=== PATIENT | female | born 1985 | race African-American/Black ===

== ENCOUNTER 2016-10-24 16:58 | Emergency (ER) | payer OTHER ==
[~2016-10-24] VITALS: Ht 170.2 cm; Wt 79.4 kg
--- NOTE | 2016-10-24 18:06 | PHYS DOC ---
Past Medical History Past Medical History: No Pertinent History Past Surgical History: Other Additional Past Surgical Histo: Tumor removed from R breast Alcohol Use: Rarely Drug Use: None Adult General Chief Complaint Chief Complaint: HYPERTENSION HPI HPI Patient is a 31 year old female comes to the ED because she was sent here from work because her blood pressure is high. Patient works in a group home. Today , she hasn't been feeling well. She woke up feeling drained. During the day she' s had some hot flashes. She's had a headache off and on and has felt some fluttering in her chest. She feels "jumpy on the inside". She doesn't really recall feeling like this in the past. She is usually in good health. Because she works at a group home she checks her own blood pressure 2 or 3 times a week and says it usually runs about 130/70. Today when she wasn't feeling well she checked it and it was 180/111. She also said a coworker is concerned that she might have "anxiety" because "she is always twitching her leg" however the patient says she's done this all of her life and she doesn't feel anxious and has no history of anxiety. Patient is in good general health. She doesn't take any medications. She has 4 children. Her blood pressure was running a little bit high before she delivered her last child in January 2016 but then it came down and it was fine. Her WOMEN'S HEALTH CARE NURSE PRACTITIONER is Dr. Bello, she hasn't seen him since her checkup which was fine. She does not have a primary care doctor. She smokes very occasionally. She doesn't do any kind of drugs or drink alcohol. Review of Systems Review of Systems Constitutional: Denies fever or chills [] Eyes: Denies change in visual acuity, redness, or eye pain [] HENT: Denies nasal congestion or sore throat [] Respiratory: Denies cough or shortness of breath [] Cardiovascular: As in history of present illness GI: Denies abdominal pain, nausea, vomiting, bloody stools or diarrhea [] : Denies dysuria or hematuria [] Musculoskeletal: Denies back pain or joint pain [] Integument: Denies rash or skin lesions [] Neurologic: She has had a headache today in association with not feeling well. Allergies Allergies Allergies Coded Allergies Type Severity Reaction Last Updated Verified No Known Drug Allergies 07/24/15 No Physical Exam Physical Exam Constitutional: Well developed, well nourished, no acute distress, non-toxic appearance. Alert, mentating normally. Blood pressure 168/105 HENT: Normocephalic, atraumatic, bilateral external ears normal, nose normal. [ ] Eyes: conjunctiva normal, no discharge. [] Neck: Normal range of motion, no stridor. [] Cardiovascular:Heart rate regular rhythm, grade 2/6 systolic murmur Lungs & Thorax: Bilateral breath sounds clear to auscultation [] Abdomen: Bowel sounds normal, soft, no tenderness, no masses, no pulsatile masses. [] Skin: Warm, dry, no erythema, no rash. [] Extremities: No tenderness, no cyanosis, no clubbing, ROM intact, no edema. [] Neurologic: Alert and oriented X 3, normal motor function, normal sensory function, no focal deficits noted. [] Current Patient Data Vital Signs Vital Signs Date Time Temp Pulse Resp B/P Pulse Ox O2 Delivery O2 Flow Rate FiO2 10/24/16 17:30 98.0 57 20 174/103 100 Room Air 98.0 EKG EKG 12-lead EKG read by me. Heart rate 60. Sinus rhythm. There are no acute ST or T wave changes indicative of ischemia or infarction. No STEMI. EKG is normal. 1717 [] Radiology/Procedures Radiology/Procedures [] Course & Med Decision Making Course & Med Decision Making Pertinent Labs and Imaging studies reviewed. (See chart for details) 31-year-old female who comes in today with an elevated blood pressure and also nonspecifically not feeling very well. Discussed with the patient we don't know whether she didn't feel well which caused her blood pressure to go up, or the other way around. Her blood pressure is not dangerously elevated today but if it remains in the range of 160-170 systolic she definitely does need to have evaluation and treatment. I discussed this with the patient who understands. Recommended that she monitor her blood pressure by taking it at least once a day for the next week or 2, meanwhile make an appointment with a primary care doctor for an office visit to discuss management of her blood pressure. The patient is stable and having no evidence of accelerated hypertension. [] Dragon Disclaimer Dragon Disclaimer This electronic medical record was generated, in whole or in part, using a voice recognition dictation system. Departure Departure Impression: Primary Impression: Elevated blood pressure Disposition: HOME, SELF-CARE Condition: STABLE Referrals: NO PCP (PCP) RAMON VICTORIA MD Patient Instructions: Hypertension, [id number] Additional Instructions: As we discussed, because you have had elevated blood pressure readings only today, I do not recommend starting any medication at this time, but check your blood pressure every day or 2 for the next 1-2 weeks and keep a record of it. Call tomorrow for a appointment with a primary care doctor and discuss your blood pressure with that doctor. Depending on what it does over the next week or 2 will depend on whether you need to have any prescriptions or other treatments. BETH BRYAN MD Oct 24, 2016 18:06
[2016-10-24 18:15] VITALS: BP 155/82
[2016-10-24 21:10] LABS: NEG OBC UR NEG; POS OBC UR POS
--- NOTE | 2016-10-25 06:57 | EKG ---
[facility] [address] [place] [address] Test Date: 2016-10-24 Test Time: 17:17:52 Pat Name: DESTIN RAMIREZ Department: Room: Gender: F Technology Professional: : 1985 Requested By: BETH BYRAN Order Number: [id number] Reading MD: Dave Potter Measurements Intervals [place] Rate: 60 P: 64 [place]: 168 QRS: 8 QRSD: 88 T: 15 QT: 400 QTc: 400 Interpretive Statements SINUS ARRHYTHMIA Electronically Signed On 10-25-2016 14:53:38 RADIOLOGY ADMINISTRATOR by Dave Potter
== END 2016-10-24 18:26 | disposition home or self-care (01) ==
LOC: ER 16:58
DX: I10 Essential (primary) hypertension (principal); F17.200 Nicotine dependence, unspecified, uncomplicated
CPT/HCPCS: 81025; 93005; 99285-25

== ENCOUNTER 2018-05-28 15:55 | Emergency (ER) | payer BC ==
[~2018-05-28] VITALS: Ht 170.2 cm; Wt 86.2 kg
[2018-05-28 16:00] VITALS: BP 130/80
--- NOTE | 2018-05-28 16:13 | PHYS DOC ---
Past Medical History Past Medical History: No Pertinent History Past Surgical History: Other Additional Past Surgical Histo: Tumor removed from R breast Alcohol Use: Rarely Drug Use: None Adult General Chief Complaint Chief Complaint: BACK PAIN OR INJURY HPI HPI Patient is a 32 year old female with no significant medical history who presents today complaining of 7 out of 10 throbbing intermittent right mid and low back pain that began this morning. Patient states she was walking down some steps carrying [id number]-old daughter when she slipped and fell. She states she fell down 2 steps and twisted wrong during the fall. Denies any loss of consciousness. Denies hitting her head on the ground, denies any neck pain. Denies pain radiating to bilateral lower extremities, denies any loss of bowel bladder function. Review of Systems Review of Systems Constitutional: Denies fever or chills [] Eyes: Denies change in visual acuity, redness, or eye pain [] HENT: Denies nasal congestion or sore throat [] Respiratory: Denies cough or shortness of breath [] Cardiovascular: No additional information not addressed in HPI [] GI: Denies abdominal pain, nausea, vomiting, bloody stools or diarrhea [] : Denies dysuria or hematuria [] Musculoskeletal: Reports mid and low back pain status post falling down steps Integument: Denies rash or skin lesions [] Neurologic: Denies headache, focal weakness or sensory changes [] All other systems were reviewed and found to be within normal limits, except as documented in this note. Allergies Allergies Allergies Coded Allergies Type Severity Reaction Last Updated Verified No Known Drug Allergies 05/28/18 No Physical Exam Physical Exam Constitutional: Well developed, well nourished, no acute distress, non-toxic appearance. [] HENT: Normocephalic, atraumatic, bilateral external ears normal, oropharynx moist, no oral exudates, nose normal. [] Eyes: PERRLA, EOMI, conjunctiva normal, no discharge. [] Neck: Normal range of motion, no tenderness, supple, no stridor. [] Cardiovascular:Heart rate regular rhythm, no murmur [] Lungs & Thorax: Bilateral breath sounds clear to auscultation [] Abdomen: Bowel sounds normal, soft, no tenderness, no masses, no pulsatile masses. [] Skin: Warm, dry, no erythema, no rash. [] Back: Diffuse paraspinal muscle tenderness to the right flank region as well as right lumbar spine, no midline thoracic or lumbar spine tenderness, no CVA tenderness. [] Extremities: No tenderness, no cyanosis, no clubbing, ROM intact, no edema. [] Neurologic: Alert and oriented X 3, normal motor function, normal sensory function, no focal deficits noted. [] Psychologic: Affect normal, judgement normal, mood normal. [] Current Patient Data Vital Signs Vital Signs Date Time Temp Pulse Resp B/P (MAP) Pulse Ox O2 Delivery O2 Flow Rate FiO2 05/28/18 16:00 98.1 63 18 130/80 (97) 100 Room Air 98.1 Lab Values Laboratory Tests Test 05/28/18 16:15 05/28/18 16:23 Urine Collection Type Unknown Urine Color Yellow Urine Clarity Clear Urine pH 7.0 Urine Specific [place] >=1.030 Urine Protein Negative mg/dL (NEG-TRACE) Urine Glucose (UA) Negative mg/dL (NEG) Urine Ketones (Stick) Negative mg/dL (NEG) Urine Blood Negative (NEG) Urine Nitrite Negative (NEG) Urine Bilirubin Negative (NEG) Urine Urobilinogen Dipstick 1.0 mg/dL (0.2 mg/dL) Urine Leukocyte Esterase Negative (NEG) Urine RBC 0 /HPF (0-2) Urine WBC Occ /HPF (0-4) Urine Squamous Epithelial Cells Mod /LPF Urine Bacteria 0 /HPF (0-FEW) Urine Mucus Mod /LPF POC Urine HCG, Qualitative Hcg negative (Negative) EKG EKG [] Radiology/Procedures Radiology/Procedures [] Course & Med Decision Making Course & Med Decision Making Pertinent Labs and Imaging studies reviewed. (See chart for details) This is a 32-year-old female patient presenting to the ED today to be evaluated after falling down 2 steps. Negative urine hCG, urine analysis is negative for infection, thoracic and lumbar spine x-rays interpreted by Dr. Rajput are negative for any acute findings. Patient was discharged with naproxen and Flexeril. Heat recommended to the back. Follow-up with PCP in 1-2 weeks. Patient has no cauda equina syndrome symptoms. Staff Physician Addendum: I was working in the ER during the course of this patient's visit. I was available for consultation as needed, but I was not directly involved in the care of this patient. Dragon Disclaimer Jonoon Disclaimer This electronic medical record was generated, in whole or in part, using a voice recognition dictation system. Departure Departure Impression: Primary Impression: Fall down steps Additional Impressions: Lumbar contusion Contusion of thoracic wall Muscle strain Disposition: 01 HOME, SELF-CARE Condition: STABLE Referrals: NO PCP (PCP) Follow-up with your doctor in 1-2 weeks Patient Instructions: Back Pain, Adult, Contusion, Fall Prevention and Home Safety, Muscle Strain Additional Instructions: You were evaluated in the emergency room for back pain after falling. Your x- rays are negative for any acute findings. Apply heat to your back. Take the prescribed medications as ordered. Follow-up with your own doctor in 1-2 weeks as needed. Scripts Methylprednisolone (MEDROL) 4 Mg Tab.ds.pk 1 PKG PO UD, #1 PKG Prov: JUAN R HUNTER APRN 05/28/18 Naproxen (NAPROXEN) 500 Mg Tablet.dr 1 TAB PO BID, #20 TAB 0 Refills Prov: JUAN R HUNTER APRN 05/28/18 Cyclobenzaprine Hcl (CYCLOBENZAPRINE HCL) 10 Mg Tablet 1 TAB PO TID, #30 TAB Prov: JUAN R HUNTER APRN 05/28/18 Problem Qualifiers Primary Impression: Fall down steps Encounter type: initial encounter Qualified Codes: W10.8XXA - Fall (on) ( from) other stairs and steps, initial encounter Additional Impressions: Lumbar contusion Encounter type: initial encounter Qualified Codes: S30.0XXA - Contusion of lower back and pelvis, initial encounter Contusion of thoracic wall Encounter type: initial encounter Contusion of thoracic wall detail: back wall of thorax Laterality: right Qualified Codes: S20.221A - Contusion of right back wall of thorax, initial encounter JUAN R HUNTER APRN May 28, 2018 16:13 MIRLANDE RAJPUT MD May 29, 2018 09:16
[2018-05-28 16:29] LABS: BILIRUBIN,URINE NEGATIVE (NEG); CLARITY,URINE CLEAR; COLOR,URINE YELLOW; NITRITE,URINE NEGATIVE (NEG); PROTEIN,URINE NEGATIVE (NEG-TRACE)
[2018-05-28 16:36] LABS: BACTERIA,URINE 0 /HPF (0-FEW); RBC,URINE 0 /HPF (0-2); SQUAMOUS EPITHELIAL CELL,UR MOD /LPF; WBC,URINE OCC /HPF (0-4)
[2018-05-28] MEDS ORDERED: NAPR500T8 PO (17:02)
[2018-05-28] MEDS ORDERED: CYCL10TA2 PO (17:02)
[2018-05-28] MEDS ORDERED: METH4TAB2 PO (17:02)
--- NOTE | 2018-05-28 18:24 | RAD ---
Indication: Fall from stairs. Pain around T10-L2. TECHNIQUE: Multiple views of the thoracic and lumbar spine COMPARISON: None FINDINGS: The thoracic spine is in normal anatomic alignment. No compression deformity seen. Heart is normal in size. Visualized lungs are clear. Noted fractures seen. The lumbar spine is in normal anatomic alignment. There are 5 lumbar type vertebral bodies. No compression deformities. SI joints within normal limits. Visualized bilateral hip joints are symmetric. No degenerative changes. IMPRESSION: No acute radiographic findings. Electronically signed by: Carrington Mcdaniel DO (05/28/2018 6:21 PM) [facility]
== END 2018-05-28 17:07 | disposition home or self-care (01) ==
LOC: ER 15:55
DX: S30.0XXA Contusion of lower back and pelvis, initial encounter (principal); S20.221A Contusion of right back wall of thorax, initial encounter; S39.012A Strain of muscle, fascia and tendon of lower back, initial encounter; W10.9XXA Fall (on) (from) unspecified stairs and steps, initial encounter; Y93.89 Activity, other specified; Y92.89 Other specified places as the place of occurrence of the external cause; Y99.8 Other external cause status
CPT/HCPCS: 72072; 72100; 81001; 81025; 99285

== ENCOUNTER 2018-07-22 09:46 | Emergency (ER) | payer BC ==
[~2018-07-22] VITALS: Ht 170.2 cm; Wt 90.7 kg
[~2018-07-22 09:46] MED LIST: CYCL10TA2 PO; METH4TAB2 PO; NAPR500T8 PO
[2018-07-22 10:14] VITALS: BP 127/63
[2018-07-22] MEDS ORDERED: AMOX500C PO (10:18)
--- NOTE | 2018-07-22 10:19 | PHYS DOC ---
Past Medical History Past Medical History: No Pertinent History Past Surgical History: Other Additional Past Surgical Histo: Tumor removed from R breast Alcohol Use: Rarely Drug Use: None Adult General Chief Complaint Chief Complaint: SORE THROAT HPI HPI Patient is a 32 year old female who presents with earaches and a sore throat that has been worsening over the past few days. Both of her children are also ill. She denies fever, nausea or vomiting. She is able to handle her own secretions. She has been trying ibuprofen and Tylenol with mild relief Review of Systems Review of Systems Constitutional: Denies fever or chills [] Eyes: Denies change in visual acuity, redness, or eye pain [] HENT: See history of present illness Respiratory: Denies cough or shortness of breath [] Cardiovascular: No additional information not addressed in HPI [] GI: Denies abdominal pain, nausea, vomiting, bloody stools or diarrhea [] : Denies dysuria or hematuria [] Musculoskeletal: Denies back pain or joint pain [] Integument: Denies rash or skin lesions [] Neurologic: Denies headache, focal weakness or sensory changes [] Endocrine: Denies polyuria or polydipsia [] All other systems were reviewed and found to be within normal limits, except as documented in this note. Allergies Allergies Allergies Coded Allergies Type Severity Reaction Last Updated Verified No Known Drug Allergies 05/28/18 No Physical Exam Physical Exam Constitutional: Well developed, well nourished, no acute distress, non-toxic appearance. [] HENT: Normocephalic, atraumatic, bilateral tympanic membranes are mildly erythematous, pharyngeal erythema with petechiae noted, no oral exudates, nose normal. [] Eyes: PERRLA, EOMI, conjunctiva normal, no discharge. [] Neck: Normal range of motion, no tenderness, supple, no stridor. [] Cardiovascular:Heart rate regular rhythm, no murmur [] Lungs & Thorax: Bilateral breath sounds clear to auscultation [] Abdomen: Bowel sounds normal, soft, no tenderness, no masses, no pulsatile masses. [] Skin: Warm, dry, no erythema, no rash. [] Back: No tenderness, no CVA tenderness. [] Extremities: No tenderness, no cyanosis, no clubbing, ROM intact, no edema. [] Neurologic: Alert and oriented X 3, normal motor function, normal sensory function, no focal deficits noted. [] Psychologic: Affect normal, judgement normal, mood normal. [] Current Patient Data Vital Signs Vital Signs Date Time Temp Pulse Resp B/P (MAP) Pulse Ox O2 Delivery O2 Flow Rate FiO2 07/22/18 10:14 98.3 94 16 127/63 (84) 99 Room Air 98.3 EKG EKG [] Radiology/Procedures Radiology/Procedures [] Course & Med Decision Making Course & Med Decision Making Pertinent Labs and Imaging studies reviewed. (See chart for details) [] Dragon Disclaimer Dragon Disclaimer This electronic medical record was generated, in whole or in part, using a voice recognition dictation system. Departure Departure Impression: Primary Impression: Otitis media, right Disposition: 01 HOME, SELF-CARE Condition: STABLE Referrals: NO PCP (PCP) Patient Instructions: Otitis Media, Adult, Viral and Bacterial Pharyngitis Additional Instructions: Take the medication as prescribed. He may use Tylenol or ibuprofen for pain or fever. You may use a sore throat spray like Cepacol for pain relief. Increase fluids and rest. Follow-up with your primary care provider if not improving in one week or return to the emergency department if worsening. Scripts Amoxicillin (AMOXICILLIN) 500 Mg Capsule 2 CAP PO BID, #40 CAP Prov: AKIRA HERNANDEZ APRN 07/22/18 AKIRA HERNANDEZ APRN Jul 22, 2018 10:19
== END 2018-07-22 10:47 | disposition home or self-care (01) ==
LOC: ER 09:46
DX: H66.91 Otitis media, unspecified, right ear (principal); J02.9 Acute pharyngitis, unspecified
CPT/HCPCS: 99283

== ENCOUNTER 2018-09-03 14:40 | Emergency (ER) | payer BC ==
[~2018-09-03] VITALS: Ht 170.2 cm; Wt 91.2 kg
[~2018-09-03 14:40] MED LIST changes: +AMOX500C PO
[2018-09-03] MEDS ORDERED: MORPHINE SULFATE 4 MG/ML VIAL. IV ONE (15:00)
[2018-09-03] MEDS ORDERED: ONDANSETRON PF 4 MG/2 ML VIAL. IV ONE (15:00)
[2018-09-03 15:07] LABS: BILIRUBIN,URINE NEGATIVE (NEG); CLARITY,URINE CLEAR; COLOR,URINE YELLOW; NITRITE,URINE NEGATIVE (NEG); PH,URINE 6.5; PROTEIN,URINE NEGATIVE (NEG-TRACE)
[2018-09-03 15:14] LABS: BASO % 1 % (0-3); EOS # 0.1 x10^3/uL (0.0-0.7); EOS % 1 % (0-3); HEMATOCRIT 38.6 % (36.0-47.0); LYMPH # 1.6 x10^3/uL (1.0-4.8); LYMPH % 25 % (24-48); MEAN CORPUSCULAR HEMOGLOBIN 27 pg (25-35); MEAN CORPUSCULAR HGB CONC 34 g/dL (31-37); MEAN CORPUSCULAR VOLUME 79 fL (79-100); MONO # 0.5 x10^3/uL (0.0-1.1); MONO % 9 % (0-9); NEUT # 3.9 x10^3uL (1.8-7.7); NEUT % 65 % (31-73); PLATELET COUNT 364 x10^3/uL (140-400); RED BLOOD COUNT 4.87 x10^6/uL (3.50-5.40); RED CELL DISTRIBUTION WIDTH 15.3 % (11.5-14.5); WHITE BLOOD COUNT 6.1 x10^3/uL (4.0-11.0)
[2018-09-03 15:15] LABS: BARBITURATES NEG (NEG); BENZODIAZEPINES NEG (NEG); CANNABINOIDS POS (NEG); COCAINE NEG (NEG); METHADONE NEG (NEG); OPIATES NEG (NEG); PHENCYCLIDINE NEG (NEG)
[2018-09-03] MEDS ORDERED: IOHEXOL 300 MG/ML 100ML VIAL. IV ONE (15:15)
[2018-09-03] MEDS ORDERED: CONTRAST GIVEN. MC PRN (15:15)
[2018-09-03 15:16] LABS: AMPHETAMINE/METHAMPHETAMINE NEG (NEG)
[2018-09-03 15:23] LABS: BACTERIA,URINE MODERATE /HPF (0-FEW); RBC,URINE 0 /HPF (0-2); SQUAMOUS EPITHELIAL CELL,UR MANY /LPF
[2018-09-03 15:23] LABS: CALCIUM 8.9 mg/dL (8.5-10.1); GFR 78.2; POTASSIUM 4.3 mmol/L (3.5-5.1)
--- NOTE | 2018-09-03 15:24 | PHYS DOC ---
Past Medical History Past Medical History: No Pertinent History Past Surgical History: No Surgical History Additional Past Surgical Histo: Tumor removed from R breast Alcohol Use: None Drug Use: None Adult General Chief Complaint Chief Complaint: ABDOMINAL PAIN HPI HPI Patient is a 33 year old female with no significant medical history who presents today complaining of a sharp intermittent 8 out of 10 bilateral lower quadrant abdominal pain radiating to her lower back as well as flank region that began 2 days ago. Patient denies any fever urgency frequency dysuria. She states she's had vomiting 5 times today. Denies any chance she is . Denies any vaginal discharge or concerns for STDs. She states she has not taken anything for her pain. Review of Systems Review of Systems Constitutional: Denies fever or chills [] Eyes: Denies change in visual acuity, redness, or eye pain [] HENT: Denies nasal congestion or sore throat [] Respiratory: Denies cough or shortness of breath [] Cardiovascular: No additional information not addressed in HPI [] GI: Reports bilateral lower quadrant abdominal pain with nausea and vomiting, denies bloody stools or diarrhea [] : Denies dysuria or hematuria [] Musculoskeletal: Reports low back pain. Integument: Denies rash or skin lesions [] Neurologic: Denies headache, focal weakness or sensory changes [] All other systems were reviewed and found to be within normal limits, except as documented in this note. Current Medications Current Medications Current Medications Medications (Trade) Dose Ordered Sig/Edita Start Time Stop Time Status Last Admin Dose Admin Ceftriaxone Sodium (Rocephin) 1 gm 1X ONCE 09/03/18 16:00 09/03/18 16:01 DC 09/03/18 16:10 1 GM Info (CONTRAST GIVEN -- Rx MONITORING) 1 each PRN DAILY PRN 09/03/18 15:15 09/05/18 15:14 Iohexol (Omnipaque 300 Mg/ml) 75 ml 1X ONCE 09/03/18 15:15 09/03/18 15:16 DC Ketorolac Tromethamine (Toradol 30mg Vial) 30 mg 1X ONCE 09/03/18 15:30 09/03/18 15:31 DC 09/03/18 15:35 30 MG Morphine Sulfate (Morphine Sulfate) 4 mg 1X ONCE 09/03/18 15:00 09/03/18 15:20 DC Ondansetron HCl (Zofran) 4 mg 1X ONCE 09/03/18 15:00 09/03/18 15:02 DC 09/03/18 15:35 4 MG Allergies Allergies Allergies Coded Allergies Type Severity Reaction Last Updated Verified No Known Drug Allergies 05/28/18 No Physical Exam Physical Exam Constitutional: Well developed, well nourished, no acute distress, non-toxic appearance. [] HENT: Normocephalic, atraumatic, bilateral external ears normal, oropharynx moist, no oral exudates, nose normal. [] Eyes: PERRLA, EOMI, conjunctiva normal, no discharge. [] Neck: Normal range of motion, no tenderness, supple, no stridor. [] Cardiovascular:Heart rate regular rhythm, no murmur [] Lungs & Thorax: Bilateral breath sounds clear to auscultation [] Abdomen: Bowel sounds normal, soft, no right upper quadrant abdominal tenderness , slight tenderness diffusely throughout the abdomen with negative psoas sign, negative obturator sign, negative Rovsing sign. No guarding no rebound tenderness, no masses, no pulsatile masses. [] Skin: Warm, dry, no erythema, no rash. [] Back: No tenderness, no CVA tenderness. [] Extremities: No tenderness, no cyanosis, no clubbing, ROM intact, no edema. [] Neurologic: Alert and oriented X 3, normal motor function, normal sensory function, no focal deficits noted. [] Psychologic: Affect normal, judgement normal, mood normal. [] Current Patient Data Vital Signs Vital Signs Date Time Temp Pulse Resp B/P (MAP) Pulse Ox O2 Delivery O2 Flow Rate FiO2 09/03/18 14:55 98.3 76 18 126/81 (96) 99 Room Air 98.3 Lab Values Laboratory Tests Test 09/03/18 14:50 09/03/18 14:52 09/03/18 15:00 Urine Collection Type Unknown Urine Color Yellow Urine Clarity Clear Urine pH 6.5 Urine Specific [place] >=1.030 Urine Protein Negative mg/dL (NEG-TRACE) Urine Glucose (UA) Negative mg/dL (NEG) Urine Ketones (Stick) Negative mg/dL (NEG) Urine Blood Negative (NEG) Urine Nitrite Negative (NEG) Urine Bilirubin Negative (NEG) Urine Urobilinogen Dipstick 1.0 mg/dL (0.2 mg/dL) Urine Leukocyte Esterase Moderate (NEG) Urine RBC 0 /HPF (0-2) Urine WBC 1-4 /HPF (0-4) Urine Squamous Epithelial Cells Many /LPF Urine Bacteria Moderate /HPF (0-FEW) Urine Mucus Mod /LPF Urine Opiates Screen Neg (NEG) Urine Methadone Screen Neg (NEG) Urine Barbiturates Neg (NEG) Urine Phencyclidine Screen Neg (NEG) Urine Amphetamine/Methamphetamine Neg (NEG) Urine Benzodiazepines Screen Neg (NEG) Urine Cocaine Screen Neg (NEG) Urine Cannabinoids Screen Pos (NEG) Urine Ethyl Alcohol Neg (NEG) POC Urine HCG, Qualitative Hcg negative (Negative) White Blood Count 6.1 x10^3/uL (4.0-11.0) Red Blood Count 4.87 x10^6/uL (3.50-5.40) Hemoglobin 13.0 g/dL (12.0-15.5) Hematocrit 38.6 % (36.0-47.0) Mean Corpuscular Volume 79 fL (79-100) Mean Corpuscular Hemoglobin 27 pg (25-35) Mean Corpuscular Hemoglobin Concent 34 g/dL (31-37) Red Cell Distribution Width 15.3 % (11.5-14.5) H Platelet Count 364 x10^3/uL (140-400) Neutrophils (%) (Auto) 65 % (31-73) Lymphocytes (%) (Auto) 25 % (24-48) Monocytes (%) (Auto) 9 % (0-9) Eosinophils (%) (Auto) 1 % (0-3) Basophils (%) (Auto) 1 % (0-3) Neutrophils # (Auto) 3.9 x10^3uL (1.8-7.7) Lymphocytes # (Auto) 1.6 x10^3/uL (1.0-4.8) Monocytes # (Auto) 0.5 x10^3/uL (0.0-1.1) Eosinophils # (Auto) 0.1 x10^3/uL (0.0-0.7) Basophils # (Auto) 0.0 x10^3/uL (0.0-0.2) Sodium Level 139 mmol/L (136-145) Potassium Level 4.3 mmol/L (3.5-5.1) Chloride Level 104 mmol/L (98-107) Carbon Dioxide Level 25 mmol/L (21-32) Anion Gap 10 (6-14) Blood Urea Nitrogen 16 mg/dL (7-20) Creatinine 1.0 mg/dL (0.6-1.0) Estimated GFR (Cockcroft-Gault) 78.2 BUN/Creatinine Ratio 16 (6-20) Glucose Level 88 mg/dL (70-99) Calcium Level 8.9 mg/dL (8.5-10.1) Total Bilirubin 0.3 mg/dL (0.2-1.0) Aspartate Amino Transferase (AST) 17 U/L (15-37) Alanine Aminotransferase (ALT) 19 U/L (14-59) Alkaline Phosphatase 79 U/L (46-116) Total Protein 8.0 g/dL (6.4-8.2) Albumin 3.8 g/dL (3.4-5.0) Albumin/Globulin Ratio 0.9 (1.0-1.7) L Lipase 194 U/L (73-393) Ethyl Alcohol Level < 10 mg/dL (0-10) Laboratory Tests 09/03/18 15:00 Laboratory Tests 09/03/18 15:00 EKG EKG [] Radiology/Procedures Radiology/Procedures [] Course & Med Decision Making Course & Med Decision Making Pertinent Labs and Imaging studies reviewed. (See chart for details) This is a 33-year-old female patient presented to the ED today with bilateral lower abdominal pain radiating to the back and began 2 days ago. Also complaining of nausea and vomiting today. CBC with normal WBC, CMP with no acute findings, urine analysis is noted for infection. Patient was given Rocephin in the ED. Will be discharged on cephalexin. Instructed to push fluids. Discharged with cyclobenzaprine and diclofenac for pain. Dragon Disclaimer Dragon Disclaimer This electronic medical record was generated, in whole or in part, using a voice recognition dictation system. Departure Departure Impression: Primary Impression: Urinary tract infection Disposition: 01 HOME, SELF-CARE Condition: STABLE Referrals: UNKNOWN PCP NAME (PCP) Follow-up with your doctor in 1-2 weeks Patient Instructions: Urinary Tract Infection Additional Instructions: You have urinary tract infection, we put you on antibiotics, ensure you complete them. Take the prescribed medications as needed for pain. Push fluids. Follow-up with your doctor in 1-2 weeks. Scripts Fluconazole (DIFLUCAN) 150 Mg Tablet 1 TAB PO ONCE, #1 TAB 1 Refill take one today and repeat in 7 days Prov: JUAN R HUNTER APRN 09/03/18 Cyclobenzaprine Hcl (CYCLOBENZAPRINE HCL) 10 Mg Tablet 1 TAB PO TID, #30 TAB Prov: JUAN R HUNTER APRN 09/03/18 Diclofenac Potassium (DICLOFENAC POTASSIUM) 50 Mg Tablet 1 TAB PO BID, #60 TAB 1 Refill Prov: JUAN R HUNTER APRN 09/03/18 Cephalexin (CEPHALEXIN) 500 Mg Tablet 1 TAB PO BID, #14 TAB Prov: JUAN R HUNTER APRN 18 Problem Qualifiers Primary Impression: Urinary tract infection Urinary tract infection type: site unspecified Hematuria presence: without hematuria Qualified Codes: N39.0 - Urinary tract infection, site not specified JUAN R HUNTER APRN Sep 03, 2018 15:23
[2018-09-03 15:28] LABS: ALBUMIN 3.8 g/dL (3.4-5.0); ALBUMIN/GLOBULIN RATIO 0.9 (1.0-1.7); TOTAL BILIRUBIN 0.3 mg/dL (0.2-1.0)
[2018-09-03 15:30] VITALS: BP 133/65
[2018-09-03] MEDS ORDERED: KETOROLAC 30 MG/ML VIAL. IV ONE (15:30)
[2018-09-03] MEDS ORDERED: cefTRIAXone IV Push 1 GM VIAL. IVP ONE (16:00)
[2018-09-03] MEDS ORDERED: CYCL10TA2 PO (16:00)
[2018-09-03] MEDS ORDERED: DICL50TA2 PO (16:00)
[2018-09-03] MEDS ORDERED: CEPH500T PO (16:00)
[2018-09-03] MEDS ORDERED: FLUC150T PO (16:21)
== END 2018-09-03 16:41 | disposition home or self-care (01) ==
LOC: ER 14:40
DX: N39.0 Urinary tract infection, site not specified (principal); R11.2 Nausea with vomiting, unspecified
CPT/HCPCS: 36415; 80053; 80307; 81001; 81025; 83690; 85025; 87086; 96374; 96375; 99283; G0480; J0696; J1885; J2405

== ENCOUNTER 2018-11-23 12:35 | Emergency (ER) | payer SELFPAY ==
[~2018-11-23] VITALS: Ht 170.2 cm; Wt 77.1 kg
[~2018-11-23 12:35] MED LIST changes: +CEPH500T PO; +DICL50TA2 PO; +FLUC150T PO
[2018-11-23 13:50] LABS: BILIRUBIN,URINE NEGATIVE (NEG); CLARITY,URINE CLEAR; COLOR,URINE YELLOW; NITRITE,URINE NEGATIVE (NEG); PH,URINE 6.5; PROTEIN,URINE NEGATIVE (NEG-TRACE); UROBILINOGEN,URINE 0.2 mg/dL (0.2 mg/dL)
[2018-11-23] MEDS ORDERED: cefTRIAXone IM 250 MG VIAL IM ONE (14:00)
[2018-11-23] MEDS ORDERED: AZITHROMYCIN 250 MG TABLET. PO ONE (14:00)
[2018-11-23 14:04] LABS: RBC,URINE 0 /HPF (0-2); WBC,URINE 0 /HPF (0-4)
[2018-11-23 14:05] LABS: BACTERIA,URINE FEW /HPF (0-FEW); SQUAMOUS EPITHELIAL CELL,UR FEW /LPF
[2018-11-23 14:21] LABS: BASO % 1 % (0-3); EOS # 0.1 x10^3/uL (0.0-0.7); EOS % 1 % (0-3); HEMATOCRIT 37.8 % (36.0-47.0); HEMOGLOBIN 12.2 g/dL (12.0-15.5); LYMPH # 1.6 x10^3/uL (1.0-4.8); LYMPH % 30 % (24-48); MEAN CORPUSCULAR HEMOGLOBIN 25 pg (25-35); MEAN CORPUSCULAR HGB CONC 32 g/dL (31-37); MEAN CORPUSCULAR VOLUME 79 fL (79-100); MONO # 0.5 x10^3/uL (0.0-1.1); MONO % 9 % (0-9); NEUT # 3.1 x10^3uL (1.8-7.7); NEUT % 59 % (31-73); PLATELET COUNT 308 x10^3/uL (140-400); RED BLOOD COUNT 4.81 x10^6/uL (3.50-5.40); RED CELL DISTRIBUTION WIDTH 15.1 % (11.5-14.5); WHITE BLOOD COUNT 5.3 x10^3/uL (4.0-11.0)
[2018-11-23 14:31] LABS: CREATININE 0.6 mg/dL (0.6-1.0); GFR 141.1; POTASSIUM 3.4 mmol/L (3.5-5.1)
[2018-11-23 14:34] LABS: ALBUMIN 3.4 g/dL (3.4-5.0); ALBUMIN/GLOBULIN RATIO 0.9 (1.0-1.7); TOTAL BILIRUBIN 0.5 mg/dL (0.2-1.0); TOTAL PROTEIN 7.2 g/dL (6.4-8.2)
[2018-11-23] MEDS ORDERED: ONDANSETRON ODT 4 MG TAB.RAPDIS. ONE (14:59)
[2018-11-23] MEDS ORDERED: ONDANSETRON ODT 4 MG TAB.RAPDIS. PO ONE ×2 (15:00→15:15)
--- NOTE | 2018-11-23 15:11 | PHYS DOC ---
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 She has not been to a quality auditor on OB doctor. Patient states that she's having lower abdominal cramping comes and goes and nausea. Review of Systems Review of Systems Constitutional: Denies fever or chills [] Eyes: Denies change in visual acuity, redness, or eye pain [] HENT: Denies nasal congestion or sore throat [] Respiratory: Denies cough or shortness of breath [] Cardiovascular: No additional information not addressed in HPI [] GI: Low mid abdominal pain, nausea, vomiting, denies bloody stools or diarrhea [ ] : vaginal discharge. Denies dysuria or hematuria [] Musculoskeletal: Denies back pain or joint pain [] Integument: Denies rash or skin lesions [] Neurologic: Denies headache, focal weakness or sensory changes [] All other systems were reviewed and found to be within normal limits, except as documented in this note. Current Medications Current Medications Current Medications Medications (Trade) Dose Ordered Sig/Edita Start Time Stop Time Status Last Admin Dose Admin Azithromycin (Zithromax) 1,000 mg 1X ONCE 11/23/18 14:00 11/23/18 14:01 DC 11/23/18 14:27 1,000 MG Ceftriaxone Sodium (Rocephin Im) 250 mg 1X ONCE 11/23/18 14:00 11/23/18 14:01 DC 11/23/18 14:28 250 MG Ondansetron HCl (Zofran Odt) 4 mg 1X ONCE 11/23/18 15:15 11/23/18 15:16 DC 11/23/18 15:31 4 MG Allergies Allergies Allergies Coded Allergies Type Severity Reaction Last Updated Verified No Known Drug Allergies 11/23/18 No Physical Exam Physical Exam Constitutional: Well developed, well nourished, no acute distress, non-toxic appearance. [] HENT: Normocephalic, atraumatic, bilateral external ears normal, oropharynx moist, no oral exudates, nose normal. [] Eyes: PERRLA, EOMI, conjunctiva normal, no discharge. [] Neck: Normal range of motion, no tenderness, supple, no stridor. [] Cardiovascular:Heart rate regular rhythm, no murmur [] Lungs & Thorax: Bilateral breath sounds clear to auscultation [] Abdomen: Bowel sounds normal, soft, Low mid abdominal tenderness, no masses, no pulsatile masses. [] Skin: Warm, dry, no erythema, no rash. [] Back: No tenderness, no CVA tenderness. [] Extremities: No tenderness, no cyanosis, no clubbing, ROM intact, no edema. [] Neurologic: Alert and oriented X 3, normal motor function, normal sensory function, no focal deficits noted. [] Psychologic: Affect normal, judgement normal, mood normal. [] Current Patient Data Vital Signs Vital Signs Date Time Temp Pulse Resp B/P (MAP) Pulse Ox O2 Delivery O2 Flow Rate FiO2 11/23/18 14:19 76 20 130/77 (94) 99 Room Air 11/23/18 13:00 98.1 98.1 Lab Values Laboratory Tests Test 11/23/18 13:00 11/23/18 13:15 11/23/18 14:11 Urine Collection Type Unknown Urine Color Yellow Urine Clarity Clear Urine pH 6.5 Urine Specific [place] 1.010 Urine Protein Negative mg/dL (NEG-TRACE) Urine Glucose (UA) Negative mg/dL (NEG) Urine Ketones (Stick) Negative mg/dL (NEG) Urine Blood Negative (NEG) Urine Nitrite Negative (NEG) Urine Bilirubin Negative (NEG) Urine Urobilinogen Dipstick 0.2 mg/dL (0.2 mg/dL) Urine Leukocyte Esterase Negative (NEG) Urine RBC 0 /HPF (0-2) Urine WBC 0 /HPF (0-4) Urine Squamous Epithelial Cells Few /LPF Urine Bacteria Few /HPF (0-FEW) Urine Mucus Slight /LPF POC Urine HCG, Qualitative Hcg positive (Negative) White Blood Count 5.3 x10^3/uL (4.0-11.0) Red Blood Count 4.81 x10^6/uL (3.50-5.40) Hemoglobin 12.2 g/dL (12.0-15.5) Hematocrit 37.8 % (36.0-47.0) Mean Corpuscular Volume 79 fL (79-100) Mean Corpuscular Hemoglobin 25 pg (25-35) Mean Corpuscular Hemoglobin Concent 32 g/dL (31-37) Red Cell Distribution Width 15.1 % (11.5-14.5) H Platelet Count 308 x10^3/uL (140-400) Neutrophils (%) (Auto) 59 % (31-73) Lymphocytes (%) (Auto) 30 % (24-48) Monocytes (%) (Auto) 9 % (0-9) Eosinophils (%) (Auto) 1 % (0-3) Basophils (%) (Auto) 1 % (0-3) Neutrophils # (Auto) 3.1 x10^3uL (1.8-7.7) Lymphocytes # (Auto) 1.6 x10^3/uL (1.0-4.8) Monocytes # (Auto) 0.5 x10^3/uL (0.0-1.1) Eosinophils # (Auto) 0.1 x10^3/uL (0.0-0.7) Basophils # (Auto) 0.0 x10^3/uL (0.0-0.2) Sodium Level 137 mmol/L (136-145) Potassium Level 3.4 mmol/L (3.5-5.1) L Chloride Level 103 mmol/L (98-107) Carbon Dioxide Level 24 mmol/L (21-32) Anion Gap 10 (6-14) Blood Urea Nitrogen 5 mg/dL (7-20) L Creatinine 0.6 mg/dL (0.6-1.0) Estimated GFR (Cockcroft-Gault) 141.1 BUN/Creatinine Ratio 8 (6-20) Glucose Level 81 mg/dL (70-99) Calcium Level 9.0 mg/dL (8.5-10.1) Total Bilirubin 0.5 mg/dL (0.2-1.0) Aspartate Amino Transferase (AST) 13 U/L (15-37) L Alanine Aminotransferase (ALT) 10 U/L (14-59) L Alkaline Phosphatase 57 U/L (46-116) Total Protein 7.2 g/dL (6.4-8.2) Albumin 3.4 g/dL (3.4-5.0) Albumin/Globulin Ratio 0.9 (1.0-1.7) L Lipase 128 U/L (73-393) Laboratory Tests 11/23/18 14:11 Laboratory Tests 11/23/18 14:11 Microbiology 11/23/18 Wet Prep - Final, Complete EKG EKG [] Radiology/Procedures Radiology/Procedures [] Impressions: [facility] [address] [place] [address] IMAGING REPORT Signed PATIENT: DESTIN RAMIREZ ACCOUNT: [id number] : 1985 LOCATION: ER AGE: 33 SEX: F EXAM STATUS: REG ER ORD. PHYSICIAN: ANDI MAURER APRN REASON: ABDOMINAL PAIN IN PROCEDURE: OB <14 WKS W/TV Obstetrical ultrasound HISTORY: Abdominal pain in . Transabdominal scan Uterus measures 11.0 x 7.3 x 8.5 cm. Gestational sac is identified. Endovaginal scan Cervical length is 4.8 cm. Gestational sac is identified with pole. [place]-rump length correlates with 8 weeks 2 days. heart tones are documented with a heart rate of 163 bpm. Yolk sac is identified. Amniotic fluid volume is within normal limits. No evidence of subchorionic hemorrhage. Minimal free fluid is identified in the cul-de-sac. Maternal right ovary measures 3.8 cm. Maternal left ovary measures 3.5 cm. Cyst identified in the left ovary measuring 2.1 cm. Intact blood supply to both maternal ovaries. IMPRESSION: Single viable intrauterine with an estimated age of 8 weeks 2 days. Estimated due date of 07/03/2019. 2.1 cm left ovarian cyst. Electronically signed by: Jerad Gustafson MD (11/23/2018 4:36 PM) [facility] DICTATED and SIGNED BY: JERAD GUSTAFSON MD DATE: 11/23/18 1962 Course & Med Decision Making Course & Med Decision Making Patient is a 33 year old female who presents with last menstrual period in August and states that this is her fifth day. She has not been to a quality auditor on OB doctor. Patient states that she's having lower abdominal cramping comes and goes and nausea. Alert and oriented. Skin pink warm and dry. Mucous membranes are moist. Abdomen is soft and tender only at low mid abdomen. Patient rates her pain at a 6 out of 10. States the pain comes and goes. When describing the pain she states it feels like a empty or heavy sensation. Patient states she is also having pain in her pelvic area the size of her lower back. Patient denies dysuria, fever, diarrhea, chest pain or shortness of air. She is no CVA tenderness. She states she is also having vaginal yellow discharge that she is noticing mostly in the mornings. Pelvic exam done and sex patient's mental disease cultures are sent off. Patient is treated for sexually transmitted diseases in the ED. Lungs are clear to auscultation all lobes. Vital signs within normal limits. Afebrile. Patient is B+ blood type. Blood work is unremarkable. Wet prep is normal. Her vaginal discharge is most likely hormone related.OB US shows Single viable intrauterine with an estimated age of 8 weeks 2 days. Estimated due date of 07/03/2019. 2.1 cm left ovarian cyst. Patient to follow up with OB doctor as soon as possible and to take Tylenol for pain. Pelvic Exam: Licensed [employer] present Abdomen: Nontender External Genitalia: Normal Skin Speculum: Normal vaginal mucosa, scant white normal cervical discharge Bimanual: No adnexal masses or tenderness, No CMT Dragon Disclaimer Dragon Disclaimer This electronic medical record was generated, in whole or in part, using a voice recognition dictation system. Departure Departure Impression: Primary Impression: Abdominal pain in Disposition: 01 HOME, SELF-CARE Condition: STABLE Referrals: NO PCP (PCP) Patient Instructions: Abdominal Pain During Additional Instructions: Follow up with OB doctor as soon as possible. Drink plenty of fluids. Scripts Ondansetron (ONDANSETRON ODT) 4 Mg Tab.rapdis 1 TAB PO PRN Q6-8HRS, #16 TAB Prov: ANDI MAURER FUR IRONER 11/23/18 Problem Qualifiers Primary Impression: Abdominal pain in Trimester: first trimester Qualified Codes: O26.891 - Other specified related conditions, first trimester; R10.9 - Unspecified abdominal pain ANDI MAURER APRN Nov 23, 2018 15:11
--- NOTE | 2018-11-23 16:40 | RAD ---
Obstetrical ultrasound HISTORY: Abdominal pain in . Transabdominal scan Uterus measures 11.0 x 7.3 x 8.5 cm. Gestational sac is identified. Endovaginal scan Cervical length is 4.8 cm. Gestational sac is identified with pole. [place]-rump length correlates with 8 weeks 2 days. heart tones are documented with a heart rate of 163 bpm. Yolk sac is identified. Amniotic fluid volume is within normal limits. No evidence of subchorionic hemorrhage. Minimal free fluid is identified in the cul-de-sac. Maternal right ovary measures 3.8 cm. Maternal left ovary measures 3.5 cm. Cyst identified in the left ovary measuring 2.1 cm. Intact blood supply to both maternal ovaries. IMPRESSION: Single viable intrauterine with an estimated age of 8 weeks 2 days. Estimated due date of 07/03/2019. 2.1 cm left ovarian cyst. Electronically signed by: Jerad Gustafson MD (11/23/2018 4:36 PM) [facility]
[2018-11-23 16:49] VITALS: BP 115/65
[2018-11-23] MEDS ORDERED: ONDA4TAB12 PO (16:56)
[2018-11-25 13:26] LABS: GC PROBE Negative (Negative)
== END 2018-11-23 17:08 | disposition home or self-care (01) ==
LOC: ER 12:35
DX: O34.81 Maternal care for other abnormalities of pelvic organs, first trimester (principal); N83.202 Unspecified ovarian cyst, left side; O21.8 Other vomiting complicating pregnancy; Z3A.08 8 weeks gestation of pregnancy
CPT/HCPCS: 36415; 76801; 76817; 80053; 81001; 81025; 83690; 85025; 86850; 86900; 86901; 87491; 87591; 96372; 99284; J0696; Q0111; Q0144; Q0162

== ENCOUNTER 2019-07-28 09:41 | Emergency (ER) | payer SELFPAY ==
[~2019-07-28] VITALS: Ht 170.2 cm; Wt 86.2 kg
[~2019-07-28 09:41] MED LIST changes: +ONDA4TAB12 PO
[2019-07-28] MEDS ORDERED: IV NORMAL SALINE 1000ML BAG 1,000 ML IV ONE (10:00)
--- NOTE | 2019-07-28 10:04 | PHYS DOC ---
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 Patient states she's also had some nausea but denies vomiting or diarrhea. Patient's ring her pain a 4 out of 10 and states is a constant dull pain but at times it feels like a spasm. Patient states that if she moves a certain way it feels better. Patient states it just feels like there is any pressure or something there all the time. Review of Systems Review of Systems Respiratory: Denies cough. shortness of breath [] Cardiovascular: Palpitations GI: Denies abdominal pain, +nausea, denies vomiting, bloody stools or diarrhea [] Musculoskeletal: Left side pain and rib pain. Denies back pain or joint pain [] All other systems were reviewed and found to be within normal limits, except as documented in this note. Current Medications Current Medications Current Medications Medications (Trade) Dose Ordered Sig/Edita Start Time Stop Time Status Last Admin Dose Admin Sodium Chloride 1,000 ml @ 1,000 mls/hr 1X ONCE 07/28/19 10:00 07/28/19 10:59 DC 07/28/19 10:34 1,000 MLS/HR Allergies Allergies Allergies Coded Allergies Type Severity Reaction Last Updated Verified No Known Drug Allergies 11/23/18 No Physical Exam Physical Exam Constitutional: Well developed, well nourished, no acute distress, non-toxic appearance. [] HENT: Normocephalic, atraumatic, bilateral external ears normal, oropharynx moist, no oral exudates, nose normal. [] Eyes: PERRLA, EOMI, conjunctiva normal, no discharge. [] Neck: Normal range of motion, no tenderness, supple, no stridor. [] Cardiovascular:Heart rate regular rhythm, no murmur [] Lungs & Thorax: Bilateral breath sounds clear to auscultation [] Abdomen: Bowel sounds normal, soft, no tenderness, no masses, no pulsatile masses. [] Skin: Warm, dry, no erythema, no rash. [] Back: No tenderness, no CVA tenderness. [] Extremities: No tenderness, no cyanosis, no clubbing, ROM intact, no edema. [] Neurologic: Alert and oriented X 3, normal motor function, normal sensory function, no focal deficits noted. [] Psychologic: Affect normal, judgement normal, mood normal. Normal Physical Exam[] Current Patient Data Vital Signs Vital Signs Date Time Temp Pulse Resp B/P (MAP) Pulse Ox O2 Delivery O2 Flow Rate FiO2 07/28/19 09:47 97.9 86 16 142/74 (96) 98 Room Air 97.9 Lab Values Laboratory Tests Test 07/28/19 09:45 07/28/19 10:04 07/28/19 10:30 Urine Collection Type Void Urine Color Yellow Urine Clarity Cloudy Urine pH 6.0 Urine Specific Overton >=1.030 Urine Protein Negative mg/dL (NEG-TRACE) Urine Glucose (UA) Negative mg/dL (NEG) Urine Ketones (Stick) 40 mg/dL (NEG) Urine Blood Negative (NEG) Urine Nitrite Negative (NEG) Urine Bilirubin Negative (NEG) Urine Urobilinogen Dipstick 1.0 mg/dL (0.2 mg/dL) Urine Leukocyte Esterase Small (NEG) Urine RBC 0 /HPF (0-2) Urine WBC 5-10 /HPF (0-4) Urine Squamous Epithelial Cells Many /LPF Urine Bacteria Moderate /HPF (0-FEW) POC Urine HCG, Qualitative Hcg negative (Negative) White Blood Count 3.9 x10^3/uL (4.0-11.0) L Red Blood Count 4.87 x10^6/uL (3.50-5.40) Hemoglobin 11.7 g/dL (12.0-15.5) L Hematocrit 36.0 % (36.0-47.0) Mean Corpuscular Volume 74 fL (79-100) L Mean Corpuscular Hemoglobin 24 pg (25-35) L Mean Corpuscular Hemoglobin Concent 33 g/dL (31-37) Red Cell Distribution Width 17.6 % (11.5-14.5) H Platelet Count 371 x10^3/uL (140-400) Neutrophils (%) (Auto) 51 % (31-73) Lymphocytes (%) (Auto) 36 % (24-48) Monocytes (%) (Auto) 9 % (0-9) Eosinophils (%) (Auto) 1 % (0-3) Basophils (%) (Auto) 3 % (0-3) Neutrophils # (Auto) 2.0 x10^3/uL (1.8-7.7) Lymphocytes # (Auto) 1.4 x10^3/uL (1.0-4.8) Monocytes # (Auto) 0.3 x10^3/uL (0.0-1.1) Eosinophils # (Auto) 0.0 x10^3/uL (0.0-0.7) Basophils # (Auto) 0.1 x10^3/uL (0.0-0.2) Sodium Level 141 mmol/L (136-145) Potassium Level 3.9 mmol/L (3.5-5.1) Chloride Level 106 mmol/L (98-107) Carbon Dioxide Level 27 mmol/L (21-32) Anion Gap 8 (6-14) Blood Urea Nitrogen 13 mg/dL (7-20) Creatinine 0.8 mg/dL (0.6-1.0) Estimated GFR (Cockcroft-Gault) 101.2 BUN/Creatinine Ratio 16 (6-20) Glucose Level 81 mg/dL (70-99) Calcium Level 8.7 mg/dL (8.5-10.1) Total Bilirubin 0.5 mg/dL (0.2-1.0) Aspartate Amino Transferase (AST) 16 U/L (15-37) Alanine Aminotransferase (ALT) 13 U/L (14-59) L Alkaline Phosphatase 74 U/L (46-116) Total Protein 8.0 g/dL (6.4-8.2) Albumin 4.0 g/dL (3.4-5.0) Albumin/Globulin Ratio 1.0 (1.0-1.7) Lipase 117 U/L (73-393) Heterophil Agglutinins Negative (NEGATIVE) Laboratory Tests 07/28/19 10:30 Laboratory Tests 07/28/19 10:30 EKG EKG Sinus Rhythm and no STEMI Interpretation Time: [address] Mosley Radiology/Procedures Radiology/Procedures [] Impressions: [facility] [address] [place] [address] IMAGING REPORT Signed PATIENT: DESTIN RAMIREZ TACCOUNT: [id number] : 1985 LOCATION: ER AGE: 33 SEX: F EXAM STATUS: REG ER ORD. PHYSICIAN: ANDI MAURER APRN REASON: soa,pt states pain left rib area, denies injury, x 1 week. PROCEDURE: CHEST PA & LATERAL CHEST PA LATERAL History: Shortness of breath. Left rib pain. Comparison: None. Findings: No consolidation or pleural effusion. Normal heart size. Impression: 1. No acute cardiopulmonary process. Electronically signed by: Cal Gore DO (07/28/2019 10:47 AM) [facility] DICTATED and SIGNED BY: CAL GORE DO DATE: 07/28/19 1047 Course & Med Decision Making Course & Med Decision Making Alert and oriented. Speaks in full clear sentences. Ambulatory with a steady gait. Skin pink warm and dry. Vital Signs within normal limits. Lungs are clear to auscultation all lobes. Abdomen is soft and nontender. There is no left-sided rib pain. There is no CVA tenderness or left-sided back pain with palpation. No bruising or redness or swelling to the abdomen or the rib cage. No crepitus. Patient states that when the pain gets really bad and feels like a spasm she gets short of breath and feels like she is having palpitations. Patient denies chest pain, headache, dizziness, dysuria, fever, cough, injury, LOC, visual changes, numbness or tingling. 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 Patient is a smoker. Urinalysis shows a urinary tract infection. Blood work unremarkable. This is likely muscle related due to the pain being worse with movement. Dragon Disclaimer [employer] Disclaimer This electronic medical record was generated, in whole or in part, using a voice recognition dictation system. Departure Departure Impression: Primary Impression: Side pain Additional Impression: UTI (urinary tract infection) Disposition: HOME, SELF-CARE Condition: STABLE Referrals: NO PCP (PCP) Patient Instructions: Muscle Strain, Urinary Tract Infection Additional Instructions: Follow up with primary care provider. Take medication as prescribed. Try using and he had to help with pain. Scripts Orphenadrine Citrate (ORPHENADRINE CITRATE) 100 Mg Tablet.er 1 TAB PO BID, #20 TAB Prov: ANDI MAURER APRN 07/28/19 Cephalexin (KEFLEX) 500 Mg Capsule 1 CAP PO BID for 7 Days, #14 CAP 0 Refills Prov: ANDI MAURER APRN 07/28/19 Ibuprofen (IBUPROFEN) 600 Mg Tablet 600 MG PO PRN Q6HRS PRN for INFLAMMATION, #20 TAB Prov: ANDI MAURER APRN 07/28/19 Problem Qualifiers Additional Impression: UTI (urinary tract infection) Urinary tract infection type: site unspecified Hematuria presence: without hematuria Qualified Codes: N39.0 - Urinary tract infection, site not specified ANDI MAURER APRN Jul 28, 2019 10:04
[2019-07-28 10:18] LABS: BILIRUBIN,URINE NEGATIVE (NEG); CLARITY,URINE CLOUDY; COLOR,URINE YELLOW; NITRITE,URINE NEGATIVE (NEG); PROTEIN,URINE NEGATIVE (NEG-TRACE)
[2019-07-28 10:44] LABS: SQUAMOUS EPITHELIAL CELL,UR MANY /LPF
[2019-07-28 10:46] LABS: BACTERIA,URINE MODERATE /HPF (0-FEW); RBC,URINE 0 /HPF (0-2)
[2019-07-28 10:48] LABS: BASO # 0.1 x10^3/uL (0.0-0.2); BASO % 3 % (0-3); EOS % 1 % (0-3); HEMOGLOBIN 11.7 g/dL (12.0-15.5); LYMPH # 1.4 x10^3/uL (1.0-4.8); LYMPH % 36 % (24-48); MEAN CORPUSCULAR HEMOGLOBIN 24 pg (25-35); MEAN CORPUSCULAR HGB CONC 33 g/dL (31-37); MEAN CORPUSCULAR VOLUME 74 fL (79-100); MONO # 0.3 x10^3/uL (0.0-1.1); MONO % 9 % (0-9); NEUT % 51 % (31-73); PLATELET COUNT 371 x10^3/uL (140-400); RED BLOOD COUNT 4.87 x10^6/uL (3.50-5.40); RED CELL DISTRIBUTION WIDTH 17.6 % (11.5-14.5); WHITE BLOOD COUNT 3.9 x10^3/uL (4.0-11.0)
--- NOTE | 2019-07-28 10:50 | RAD ---
CHEST PA LATERAL History: Shortness of breath. Left rib pain. Comparison: None. Findings: No consolidation or pleural effusion. Normal heart size. Impression: 1. No acute cardiopulmonary process. Electronically signed by: Cal Gore DO (07/28/2019 10:47 AM) [facility]
[2019-07-28 10:59] LABS: CALCIUM 8.7 mg/dL (8.5-10.1); CREATININE 0.8 mg/dL (0.6-1.0); GFR 101.2; POTASSIUM 3.9 mmol/L (3.5-5.1)
[2019-07-28 11:00] VITALS: BP 139/70
[2019-07-28 11:05] LABS: TOTAL BILIRUBIN 0.5 mg/dL (0.2-1.0)
[2019-07-28 11:10] LABS: MONONUCLEOSIS PATIENT NEGATIVE (NEGATIVE)
[2019-07-28] MEDS ORDERED: CEPH-264 PO (11:38)
[2019-07-28] MEDS ORDERED: IBUP-1007 PO (11:38)
[2019-07-28] MEDS ORDERED: ORPH100T PO (11:38)
[2019-07-28] MEDS ORDERED: KETOROLAC 30 MG/ML VIAL. IVP ONE (11:45)
== END 2019-07-28 12:29 | disposition home or self-care (01) ==
LOC: ER 09:41
DX: N39.0 Urinary tract infection, site not specified (principal); R07.81 Pleurodynia; R10.12 Left upper quadrant pain
CPT/HCPCS: 36415; 71046; 80053; 81001; 81025; 83690; 85025; 86308; 87086; 96374; 99285; J1885; J7030